=== PATIENT | female | born 1995 | race Two or more races ===

== ENCOUNTER 2019-05-08 11:54 | Emergency (ER) | payer BC ==
[~2019-05-08] VITALS: Ht 170.2 cm; Wt 59.0 kg
[2019-05-08] MEDS ORDERED: IBUPROFEN 600MG TABLET PO ONE (12:45)
[2019-05-08] MEDS ORDERED: KETOROLAC 60MG/2ML VIAL IM ONE (13:00)
[2019-05-08] MEDS ORDERED: HYDROCODONE/ACETAMINOPHEN 5/325MG TABLET PO ONE (14:15)
[2019-05-08 14:27] VITALS: BP 118/89
== END 2019-05-08 14:37 | disposition home or self-care (01) ==
LOC: ER 11:54
DX: S82.401A Unspecified fracture of shaft of right fibula, initial encounter for closed fracture (principal); W20.8XXA Other cause of strike by thrown, projected or falling object, initial encounter; Y93.31 Activity, mountain climbing, rock climbing and wall climbing; Y92.9 Unspecified place or not applicable
CPT/HCPCS: 29505; 73590; 81025; 96372; 99283; J1885

== ENCOUNTER → 2019-05-16 | Outpatient (CLI) | payer BC ==
[2019-05-16 11:44] LABS: CLARITY URINE CLEAR (CLEAR); COLOR URINE YELLOW (YELLOW); KETONES URINE NEGATIVE (NEGATIVE); LEUKOCYTE ESTERASE URINE NEGATIVE (NEGATIVE); NITRITE URINE NEGATIVE (NEGATIVE); OCCULT BLOOD URINE NEGATIVE (NEGATIVE); PH URINE 7.5 (4.5-8.0); PROTEIN URINE NEGATIVE (NEGATIVE); SPECIFIC GRAVITY URINE 1.007 (1.005-1.030); UROBILINOGEN URINE 0.2 E.U./dL (0.2-1.0)
[2019-05-16 12:02] LABS: BASOPHILS % 0.2 % (0.0-2.0); EOSINOPHILS % 0.7 % (0.0-5.0); HEMATOCRIT. 39.8 % (36.0-48.0); HEMOGLOBIN. 13.6 g/dL (12.0-16.0); LYMPHOCYTES % 25.1 % (20.0-50.0); MEAN PLATELET VOLUME 8.8 fl (7.4-10.4); MONOCYTES % 4.9 % (2.0-8.0); NEUTROPHILS % 69.1 % (40.0-76.0); PLATELET 282 x1000/uL (130-400); RED BLOOD CELL COUNT 4.23 mill/uL (4.2-5.4)
[2019-05-16 12:15] LABS: CHLORIDE 106 mEq/L (98-107)
[2019-05-16 12:22] LABS: LDL CHOLESTEROL 108 mg/dL (5-100)
[2019-05-16 12:23] LABS: HDL CHOLESTEROL 69 mg/dL (40-59)
[2019-05-16 12:34] LABS: FOLIC ACID (FOLATE) SERUM 18.6 ng/mL (>5.38)
[2019-05-18 09:10] LABS: HIV SCREEN 4G Non Reactive (Non Reactive)
== END | disposition home or self-care (01) ==
LOC: LAB 11:14
PROVIDERS: ATTEND Internal Medicine
DX: S82.831A Other fracture of upper and lower end of right fibula, initial encounter for closed fracture (principal); R73.09 Other abnormal glucose; R53.83 Other fatigue; X58.XXXA Exposure to other specified factors, initial encounter; Y93.89 Activity, other specified; Y92.89 Other specified places as the place of occurrence of the external cause; Y99.8 Other external cause status
CPT/HCPCS: 36415; 73590; 80061; 82607; 82728; 82746; 83036; 83540; 84436; 84443; 84479; 84550; 86592; 87389

== ENCOUNTER → 2019-05-27 | Outpatient (CLI) | payer BC | END | disposition home or self-care (01) | LOC: RAD 10:58 | PROVIDERS: ATTEND Orthopaedic Surgery | DX: S82.831A Other fracture of upper and lower end of right fibula, initial encounter for closed fracture (principal); X58.XXXA Exposure to other specified factors, initial encounter; Y93.89 Activity, other specified; Y92.89 Other specified places as the place of occurrence of the external cause; Y99.8 Other external cause status | CPT/HCPCS: 73590 ==

== ENCOUNTER → 2019-06-17 | Outpatient (CLI) | payer BC | END | disposition home or self-care (01) | LOC: RAD 14:03 | PROVIDERS: ATTEND Orthopaedic Surgery | DX: S82.831D Other fracture of upper and lower end of right fibula, subsequent encounter for closed fracture with routine healing (principal); L84 Corns and callosities | CPT/HCPCS: 73590 ==

== ENCOUNTER 2019-07-07 21:52 | Emergency (ER) | payer BC ==
[~2019-07-07] VITALS: Ht 170.2 cm; Wt 60.2 kg
[2019-07-08] MEDS ORDERED: ACETAMINOPHEN 325MG TABLET PO STA (00:26)
[2019-07-08 01:26] VITALS: BP 120/68
== END 2019-07-08 01:31 | disposition home or self-care (01) ==
LOC: ER 21:52
DX: Z48.00 Encounter for change or removal of nonsurgical wound dressing (principal); Z87.81 Personal history of (healed) traumatic fracture
CPT/HCPCS: 29515; 99283

== ENCOUNTER → 2019-07-25 | Outpatient (CLI) | payer BC | END | disposition home or self-care (01) | LOC: RAD 10:07 | PROVIDERS: ATTEND Orthopaedic Surgery | DX: S82.201A Unspecified fracture of shaft of right tibia, initial encounter for closed fracture (principal); X58.XXXA Exposure to other specified factors, initial encounter; Y93.89 Activity, other specified; Y92.89 Other specified places as the place of occurrence of the external cause; Y99.8 Other external cause status | CPT/HCPCS: 73590 ==

== ENCOUNTER → 2020-04-07 | Outpatient (CLI) | payer OTHER | END | disposition home or self-care (01) | LOC: MRI 08:08 | PROVIDERS: ATTEND Family Medicine Adult Medicine | DX: S83.91XA Sprain of unspecified site of right knee, initial encounter (principal); M25.861 Other specified joint disorders, right knee; X58.XXXA Exposure to other specified factors, initial encounter; Y93.89 Activity, other specified; Y92.89 Other specified places as the place of occurrence of the external cause | CPT/HCPCS: 73721 ==